=== PATIENT | male | born 1995 | race Caucasian/White ===

== ENCOUNTER 2018-10-24 14:07 | Emergency (ER) | payer SELFPAY ==
[~2018-10-24] VITALS: Ht 190.5 cm; Wt 75.0 kg
[2018-10-24] MEDS ORDERED: BACITRACIN ZINC OINT UDPKT TOP ONE (15:00)
[2018-10-24 15:14] VITALS: BP 108/77
== END 2018-10-24 15:14 | disposition home or self-care (01) ==
LOC: ER 14:46
DX: S61.250A Open bite of right index finger without damage to nail, initial encounter (principal); S61.252A Open bite of right middle finger without damage to nail, initial encounter; F12.10 Cannabis abuse, uncomplicated; F17.210 Nicotine dependence, cigarettes, uncomplicated; W54.0XXA Bitten by dog, initial encounter; Y93.01 Activity, walking, marching and hiking; Y92.89 Other specified places as the place of occurrence of the external cause
CPT/HCPCS: 99282